=== PATIENT | female | born 1980 | race Caucasian/White ===

== ENCOUNTER → 2019-05-05 | Emergency (ER) | payer OTHER ==
[~2019-05-05] VITALS: Ht 160 cm; Wt 72.1 kg
[~2019-05-05] MED LIST: ACYC800T5 PO; HC30CR25 TOP
[2019-05-05 09:08] VITALS: BP 153/66; PULSE 60; RESP 17; Ht 160 cm; Wt 72.1 kg
--- NOTE | 2019-05-05 09:40 | ERD ---
ER Documentation Chief Complaint Chief Complaint RIGHT THUMB INFECTION, ON AND OFF X1 YEAR HPI 38-year-old female presenting with skin irritation to right thumb. Patient has been taking oral antibiotics and applying antibiotic cream denies medical problems. NKDA. Surgical history is breast surgery. She vapes. Drug use denies ROS All systems reviewed and are negative except as per history of present illness. Medications Home Meds Active Scripts Hydrocortisone* Topical (Hydrocortisone* Topical) 2.5%-28.3 Gm Cream..g., 1 APPLIC TOP BID, #1 TUB Prov:CAROL DOMINGUEZ PA-C 05/05/19 Acyclovir* (Zovirax*) 800 Mg Tablet, 800 MG PO 5 TIMES DAILY for 7 Days, TAB Prov:CAROL DOMINGUEZ PA-C 05/05/19 PMhx/Soc Medical and Surgical Hx: pt denies Medical Hx History of Surgery: Yes (NETTA BREAST IMPLANTS) Hx Miscellaneous Medical Probl: Yes (STAPH INFECTION RIGHT THUMB) Hx Alcohol Use: No Hx Substance Use: No Hx Tobacco Use: No Smoking Status: Never smoker FmHx Family History: No diabetes, No coronary disease, No other Physical Exam Vitals Vital Signs Date Temp Pulse Resp B/P (MAP) Pulse Ox O2 O2 Flow FiO2 Time Delivery Rate 05/05/19 97.6 60 17 153/66 98 09:08 (95) Physical Exam GENERAL: The patient is well-appearing, well-nourished, in no acute distress CHEST: Clear to auscultation bilaterally. There are no rales, wheezes or rhonchi. HEART: Regular rate and rhythm. No murmurs, clicks, rubs or gallops. N EXTREMITIES: Equal pulses bilaterally. There is no peripheral clubbing, cyanosis or edema. No focal swelling or erythema. Full range of motion. NEUROLOGIC: Alert and oriented. Cranial nerves II through XII intact. Motor strength in all 4 extremities with 5 out of 5 strength. Sensation grossly intact. SKIN: Peeling skin noted to the thumb with no vesicles currently. Procedures/MDM MDM: 38-year-old female presenting with irritation to the skin. I believe patient likely has dyshidrotic eczema however she is convinced something more severe. I will attempt to treat with antivirals in the event that this could be herpetic angelo. Given patient has had this for multiple months and hepatic w hitlow is typically self limiting after 3 to 4 weeks I have lower suspicion patient is discharged and recommended to use medications as prescribed. Patient is told symptoms change or worsen to return immediately to the ER. I have low suspicion for infectious process. I have low suspicion for flexor tenosynovitis. All questions answered at discharge Departure Diagnosis: Primary Impression: Skin irritation Condition: Stable Patient Instructions: Skin Ulcer, Simple Referrals: COMM[facility]ITY CLIN[facility] YOU HAVE RECEIVED A MEDICAL SCREENING EXAM AND THE RESULTS INDICATE THAT YOU DO NOT HAVE A CONDITION THAT REQUIRES URGENT TREATMENT IN THE EMERGENCY DEPARTMENT. FURTHER EVALUATION AND TREATMENT OF YOUR CONDITION CAN WAIT UNTIL YOU ARE SEEN IN YOUR DOCTORS OFFICE WITHIN THE NEXT 1-2 DAYS. IT IS YOUR RESPONSIBILITY TO MAKE AN APPOINTMENT FOR FOLOW-UP CARE. IF YOU HAVE A PRIMARY DOCTOR --you should call your primary doctor and schedule an appointment IF YOU DO NOT HAVE A PRIMARY DOCTOR YOU CAN CALL OUR PHYSICIAN REFERRAL HOTLINE AT IF YOU CAN NOT AFFORD TO SEE A PHYSICIAN YOU CAN CHOSE FROM THE FOLLOWING [facility] [id number] [facility] [address] [facility] [facility] [address] [facility] [address] [facility] [address] [facility]. [facility]. [address] Additional Instructions: FOLLOW UP WITH YOUR PRIMARY CARE PHYSICIAN TOMORROW.Return to this facility if you are not improving as expected. CAROL DOMINGUEZ PA-C May 05, 2019 09:40
== END | disposition home or self-care (01) ==
LOC: FTE 09:06
DX: L98.9 Disorder of the skin and subcutaneous tissue, unspecified (principal)
CPT/HCPCS: 99283